=== PATIENT | female | born 1970 | race Caucasian/White ===

== ENCOUNTER 2019-03-25 12:15 | Inpatient (IN) | payer OTHER ==
[~2019-03-25] VITALS: Ht 165.1 cm; Wt 84.3 kg
[~2019-03-25 12:15] MED LIST: ACET325 PO; ALBU90OI6 INH; ALPR.5 PO; AZIT250 PO; BUPRENORPHIN-N1 EACH SL; CEFD300 PO; CEPH500 PO; CIPR500 PO; CLON.1 PO; CLON1 PO; CLON2 PO; CONEST.625 PO; CONEST.9 PO; CONEST1.25 PO; CRUTCH3 USE; CRUTCH4 USE; CYCL10 PO; DELTASONE20 MG PO; DEXGUASY PO; DIAZ5 PO; DIGO.25 PO; DILT120 PO; DILT60 PO; DOXEPIN; DOXY100 PO; ERGO50000 PO; FLUT1DIS5 INH; GABA300 PO; HYDACE10B PO; HYDACE5 PO; IBUP400 PO; IBUP600 PO; IBUP800 PO; KETO10 PO; LEVFLO500 PO; LORA1 PO; METH10; METH10 PO; MONT10T PO; Mobic15 MG PO; NAPR220; NAPR500 PO; NAPR550 PO; NICO21TP TOP; OXYACE5T PO; OXYC5 PO; PARO20 PO; PENVK500 PO; PROACE100 PO; PROM25 PO; Pyridium200 MG PO; QUET100 PO; RXCYCL10 PO; RXHYDACE PO; RXPROACE PO; RXTRAM50 PO; SERT25; SERT50; SULTRIDS PO; TRAM50 PO; TRIHYD PO; Vistaril25 MG PO; WARF2; WARF5 PO; ZOLP5; [UNRECOGNIZED DRUG - REMARK]
[2019-03-25] MEDS ORDERED: ZESTORETIC 20-121 EA PO (13:04)
[2019-03-25] MEDS ORDERED: Toprol Xl50 MG PO (13:05)
[2019-03-25 13:14] LABS: Source, Urine Clean Catch
[2019-03-25 13:34] LABS: BASOPHILS PERCENT AUTO 1 % (0-2); EOSINOPHILS ABSOLUTE AUTO 0.02 K/mm3 (0.00-0.68); EOSINOPHILS PERCENT AUTO 0 % (0-6); Hematocrit 37.7 % (33.0-51.0); Hemoglobin 12.6 g/dL (11.5-16.0); IMMATURE GRAN ABSOLUTE AUTO 0.23 K/mm3 (0.00-0.10); IMMATURE GRAN PERCENT AUTO 1 % (0-1); LYMPHOCYTES ABSOLUTE AUTO 1.64 K/mm3 (0.84-5.20); LYMPHOCYTES PERCENT AUTO 8 % (21-46); MONOCYTES ABSOLUTE AUTO 1.62 K/mm3 (0.16-1.47); MONOCYTES PERCENT AUTO 8 % (4-13); Mean Corpuscular HGB 28.5 pg (26.0-34.0); Mean Corpuscular HGB Conc 33.4 g/dL (31.5-36.5); Mean Corpuscular Volume 85 fL (80-100); NEUTROPHILS ABSOLUTE AUTO 17.63 K/mm3 (1.96-9.15); NEUTROPHILS PERCENT AUTO 83 % (41-73); RDW Coefficient Variation 12.2 % (11.7-14.2); RDW Standard Deviation 38.3 fL (35.1-46.3); Red Blood Cell Count 4.42 M/mm3 (3.80-5.20); White Blood Cell Count 21.24 K/mm3 (4.00-11.30)
[2019-03-25 13:34] LABS: Appearance, Urine Cloudy (Clear); Bilirubin, Urine Neg (Neg); Blood, Urine 3+ (Neg); Color, Urine Yellow (P-Yellow); Glucose Qualitative, Urine 4+ (Neg); Ketones, Urine 1+ (Neg); Leukocyte Esterase, Urine 2+ (Neg); Nitrite, Urine Neg (Neg); Protein, Urine 1+ (Neg); Urobilinogen, Urine NORM (Normal)
[2019-03-25 13:45] LABS: Mean Platelet Volume 12.1 fL (9.1-12.4); Platelet Count 308 K/mm3 (150-400)
[2019-03-25 13:58] LABS: Bacteria Many /hpf; Red Blood Cells, Urine TNTC /hpf (0-2); Squamous Epithelial Cells Few /hpf (Few); White Blood Cells, Urine TNTC /hpf (0-5)
[2019-03-25 14:24] LABS: Alanine Aminotransfer (ALT/SGP 16 U/L (12-78); Albumin, Blood 2.3 g/dL (3.4-5.0); Albumin/Globulin Ratio 0.5 (0.8-1.8); Alk Phos 140 U/L (50-136); Anion Gap 12 mmol/L (6-16); Aspartate Aminotrans (AST/SGOT 6 U/L (12-37); Bilirubin, Total 0.5 mg/dL (0.1-1.0); Blood Urea Nitrogen 19 mg/dL (8-24); Bun/Creatinine Ratio 21.2 (12.0-20.0); CO2, Blood 26 mmol/L (21-32); Calcium, Blood 9.3 mg/dL (8.5-10.1); Chloride, Blood 88 mmol/L (98-108); Globulin, Blood 4.7 g/dL (2.2-4.0); Glomerular Filtration Rate >60 (60-); Glucose, Blood 707 mg/dL (70-99); Potassium, Blood 3.3 mmol/L (3.5-5.5); Sodium, Blood 126 mmol/L (136-145)
[2019-03-25] MEDS ORDERED: AMPDEX10CR PO (14:50)
[2019-03-25 16:47] LABS: BASOPHILS ABSOLUTE AUTO 0.06 K/mm3 (0.00-0.23); BASOPHILS PERCENT AUTO 0 % (0-2); EOSINOPHILS ABSOLUTE AUTO 0.04 K/mm3 (0.00-0.68); EOSINOPHILS PERCENT AUTO 0 % (0-6); Hematocrit 33.8 % (33.0-51.0); Hemoglobin 11.3 g/dL (11.5-16.0); IMMATURE GRAN ABSOLUTE AUTO 0.18 K/mm3 (0.00-0.10); IMMATURE GRAN PERCENT AUTO 1 % (0-1); LYMPHOCYTES ABSOLUTE AUTO 1.66 K/mm3 (0.84-5.20); LYMPHOCYTES PERCENT AUTO 9 % (21-46); MONOCYTES ABSOLUTE AUTO 1.32 K/mm3 (0.16-1.47); MONOCYTES PERCENT AUTO 7 % (4-13); Mean Corpuscular HGB 28.5 pg (26.0-34.0); Mean Corpuscular HGB Conc 33.4 g/dL (31.5-36.5); Mean Corpuscular Volume 85 fL (80-100); NEUTROPHILS ABSOLUTE AUTO 14.68 K/mm3 (1.96-9.15); NEUTROPHILS PERCENT AUTO 82 % (41-73); Platelet Count 311 K/mm3 (150-400); RDW Coefficient Variation 12.3 % (11.7-14.2); RDW Standard Deviation 38.4 fL (35.1-46.3); Red Blood Cell Count 3.96 M/mm3 (3.80-5.20); White Blood Cell Count 17.94 K/mm3 (4.00-11.30)
[2019-03-25 17:02] LABS: International Normalized Ratio 1.02; Prothrombin Time Results 10.8 Sec (9.7-11.5)
[2019-03-25 17:08] LABS: Alanine Aminotransfer (ALT/SGP 13 U/L (12-78); Albumin, Blood 2.1 g/dL (3.4-5.0); Albumin/Globulin Ratio 0.5 (0.8-1.8); Alk Phos 121 U/L (50-136); Anion Gap 8 mmol/L (6-16); Aspartate Aminotrans (AST/SGOT 4 U/L (12-37); Bilirubin, Total 0.3 mg/dL (0.1-1.0); Blood Urea Nitrogen 19 mg/dL (8-24); Bun/Creatinine Ratio 23.3 (12.0-20.0); CO2, Blood 27 mmol/L (21-32); Calcium, Blood 8.3 mg/dL (8.5-10.1); Chloride, Blood 93 mmol/L (98-108); Creatinine, Blood 0.81 mg/dL (0.40-1.00); Globulin, Blood 4.3 g/dL (2.2-4.0); Glomerular Filtration Rate >60 (60-); Glucose, Blood 583 mg/dL (70-99); Potassium, Blood 3.1 mmol/L (3.5-5.5); Sodium, Blood 128 mmol/L (136-145); Total Protein, Blood 6.4 g/dL (6.4-8.2)
[2019-03-25 17:40] LABS: Glucose, Blood 590 mg/dL (70-99)
--- NOTE | 2019-03-25 19:18 | NUR ---
PM NOTE. ASSUMED CARE OF PT APROX 1900, PT IS A&Ox4 AND WAS ADMITTED DUE TO PNA/SEPSIS AND WAS FOUND TO HAVE HYPERGLYCEMIA. PT'S CURRENT CBG IS 488. TELE INTACT, NSR IN THE 90"S PER CUSTOMER RESOLUTION SPECIALIST, PT'S BP 98/67. NO EDEMA NOTED ON ASSESSMENT. L/S CLEAR IN THE UPPER LOBES COARSE T/O THE MID AND LOWER LOBES AND DIM IN THE BASES. PT IS ON RA AT 95%. BT PRESENT AND HYPERACTIVE, ABD IS SOFT AND NONTENDER TO PALP. PT IS VERY ANXIOUS AND TEARFUL AT TIMES, PT IS VERY SENSITIVE TO ANY TYPE OF PAIN AND STATES SHE IS IN 8/10 CONSTANTLY. PT HAS HX OF IV HEROIN/OPIATE ABUSE. CALL LIGHT IN REACH, BED IS LOCKED AND LOW WILL CONTINUE TO MONITOR.
[2019-03-25 21:00] LABS: Glucose, Blood 488 mg/dL (70-99)
[2019-03-26 04:19] LABS: BASOPHILS ABSOLUTE AUTO 0.05 K/mm3 (0.00-0.23); BASOPHILS PERCENT AUTO 0 % (0-2); EOSINOPHILS ABSOLUTE AUTO 0.05 K/mm3 (0.00-0.68); EOSINOPHILS PERCENT AUTO 0 % (0-6); Hematocrit 32.9 % (33.0-51.0); Hemoglobin 10.9 g/dL (11.5-16.0); IMMATURE GRAN ABSOLUTE AUTO 0.27 K/mm3 (0.00-0.10); IMMATURE GRAN PERCENT AUTO 1 % (0-1); LYMPHOCYTES PERCENT AUTO 9 % (21-46); MONOCYTES ABSOLUTE AUTO 1.41 K/mm3 (0.16-1.47); MONOCYTES PERCENT AUTO 7 % (4-13); Mean Corpuscular HGB 28.7 pg (26.0-34.0); Mean Corpuscular HGB Conc 33.1 g/dL (31.5-36.5); Mean Corpuscular Volume 87 fL (80-100); Mean Platelet Volume 11.8 fL (9.1-12.4); NEUTROPHILS ABSOLUTE AUTO 15.93 K/mm3 (1.96-9.15); NEUTROPHILS PERCENT AUTO 82 % (41-73); Platelet Count 319 K/mm3 (150-400); RDW Coefficient Variation 12.5 % (11.7-14.2); RDW Standard Deviation 40.1 fL (35.1-46.3); White Blood Cell Count 19.41 K/mm3 (4.00-11.30)
[2019-03-26 04:38] LABS: Alanine Aminotransfer (ALT/SGP 14 U/L (12-78); Albumin, Blood 1.9 g/dL (3.4-5.0); Albumin/Globulin Ratio 0.4 (0.8-1.8); Alk Phos 110 U/L (50-136); Anion Gap 7 mmol/L (6-16); Aspartate Aminotrans (AST/SGOT 10 U/L (12-37); Bilirubin, Total 0.5 mg/dL (0.1-1.0); Blood Urea Nitrogen 19 mg/dL (8-24); Bun/Creatinine Ratio 24.6 (12.0-20.0); CO2, Blood 26 mmol/L (21-32); Calcium, Blood 8.4 mg/dL (8.5-10.1); Chloride, Blood 99 mmol/L (98-108); Creatinine, Blood 0.77 mg/dL (0.40-1.00); Globulin, Blood 4.6 g/dL (2.2-4.0); Glomerular Filtration Rate >60 (60-); Glucose, Blood 351 mg/dL (70-99); Potassium, Blood 3.8 mmol/L (3.5-5.5); Sodium, Blood 132 mmol/L (136-145); Total Protein, Blood 6.5 g/dL (6.4-8.2)
[2019-03-26] MEDS ORDERED: GABA400 PO (05:02)
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
--- NOTE | 2019-03-26 18:04 | NUR ---
SHIFT SUMMARY PT ALERT AND ORIENTED. VS HAVE BEEN STABLE. 02 SATS >90% ON RA. PT HAS BEEN ANXIOUS AND TEARFUL THROUGHOUT SHIFT. CBG HAVE IMPROVED. EDUCATION PROVIDED ABOUT DIABETES. PT ABLE TO TRANSFER TO BATHROOM NEEDED WITH SBA. WILL CONTINUE TO MONITOR AND REPORT TO ONCOMING RN. CALL LIGHT IN REACH.
--- NOTE | 2019-03-26 19:39 | NUR ---
PM NOTE. ASSUMED CARE OF PT APROX 1900. PT IS A&Ox4, ANXIOUS, MOANING STATING SHE IS "IN THE WORST PAIN OF MY LIFE." PT WAS ADMITTED FOR SEPSIS, PNA AND UTI. PT STATED THAT HER FIANCE WAS GOING TO COME VISIT HER AND ASKED IF HE COULD TAKE HER OUTSIDE. THIS RN EDUCATED THE PT ON WHAT PCU STATUS MEANS AND THAT THE UNIT POLICY IS NOT TO ALLOW PTS TO LEAVE THE UNIT TO GO SMOKE. PT TEARFULLY STATED HER UNDERSTANDING. PT HAS AN 18 G IV IN HER RIGHT EJ, PT STATED THAT THE IV ANTIBIOTICS THAT WERE RUNNING THROUGH THIS IV WERE CAUSING HER SEVERE PAIN, THIS IV WAS SWITCHED TO THE 20 G IN HER LEFT HAND. PT WAS PROVIDED WITH EDUCATION ON DIABETES HOME CARE, DIET, BLOOD SUGAR CHECKS/CBGS AT HOME. PT DENIED ANY QUESTIONS, COMMENTS OR CONCERNS. PT WAS ENCOURAGED TO USE AN I.S. TO HELP WITH HER BREATHING, RT IN THE ROOM TO PROVIDE EDUCATION/INSTRUCTION. PT WAS ALSO ENCOURAGED TO GET UP AND SIT IN A CHAIR FOR MEALS TO PREVENT DECONDITIONING. TELE INTACT, SNR IN THE 90'S PER PEPPER CUTTER. PT'S BP 113/72. PT HAS TRACE EDEMA TO HER BLE. L/S CLEAR IN THE UPPER LOBES, COARSE IN THE OTHER LOBES, LEFT LOWER LOBE WAS NOTED TO BE DIM W/EXP WHEEZES. PT IS ON RA WITH O2 AT 90%. RR 18 EVEN AND UNLABORED. PT STATES SEVERE PAIN WITH COUGHING OR DEEP BREATHS. BT PRESENT AND HYPOACTIVE, ABD IS SOFT AND NONTENDER TO PALP. CALL LIGHT IN REACH, BED IS LOCKED AND LOW WILL CONTINUE TO MONITOR.
--- NOTE | 2019-03-27 05:18 | NUR ---
SHIFT SUMMARY. NO ACUTE CHANGES NOTED THIS SHIFT. PT HAS SLEPT WELL MOST OF THIS SHIFT. PT'S FIANCE WAS AT THE BED SIDE FOR APROX 2 HOURS. PT'S VS HAVE BEEN STABLE. PT C/O OF PAIN AND ANXIETY AND WAS MEDICATED PER EMAR. PT REQUESTED O2 SUPPLEMENTATION APROX 0300, PT'S O2 SATS WERE 88-91% ON RA. SPOKE WITH RT AND PLACED 2L NC ON THE PT, PT'S O2 SATS INCREASED TO 92-93% PT STATES SHE "FEELS A LITTLE BETTER WITH OXYGEN ON." PT HAS BEEN EDUCUATED AND ENCOURAGED TO USE THE INCENTIVE SPIROMETER AT THE BEDSIDE. PT HAS BEEN WALKING INTO THE BATHROOM TO VOID, PT HAS NOT HAD A BM THIS SHIFT, PT'S LAST STATED BM WAS ON 03/24. CALL LIGHT IN REACH, BED IS LOCKED AND LOW WILL CONTINUE TO MONITOR UNTIL REPORT IS GIVEN TO ONCOMING RN.
[2019-03-27 12:04] LABS: BASOPHILS ABSOLUTE AUTO 0.08 K/mm3 (0.00-0.23); BASOPHILS PERCENT AUTO 1 % (0-2); EOSINOPHILS ABSOLUTE AUTO 0.05 K/mm3 (0.00-0.68); EOSINOPHILS PERCENT AUTO 0 % (0-6); Hematocrit 33.8 % (33.0-51.0); Hemoglobin 11.2 g/dL (11.5-16.0); IMMATURE GRAN ABSOLUTE AUTO 0.68 K/mm3 (0.00-0.10); IMMATURE GRAN PERCENT AUTO 4 % (0-1); LYMPHOCYTES ABSOLUTE AUTO 2.09 K/mm3 (0.84-5.20); LYMPHOCYTES PERCENT AUTO 12 % (21-46); MONOCYTES ABSOLUTE AUTO 1.14 K/mm3 (0.16-1.47); MONOCYTES PERCENT AUTO 7 % (4-13); Mean Corpuscular HGB 28.9 pg (26.0-34.0); Mean Corpuscular HGB Conc 33.1 g/dL (31.5-36.5); Mean Corpuscular Volume 87 fL (80-100); Mean Platelet Volume 11.3 fL (9.1-12.4); NEUTROPHILS ABSOLUTE AUTO 12.95 K/mm3 (1.96-9.15); NEUTROPHILS PERCENT AUTO 76 % (41-73); Platelet Count 341 K/mm3 (150-400); RDW Coefficient Variation 13.1 % (11.7-14.2); RDW Standard Deviation 41.2 fL (35.1-46.3); Red Blood Cell Count 3.87 M/mm3 (3.80-5.20); White Blood Cell Count 16.99 K/mm3 (4.00-11.30)
[2019-03-27 12:21] LABS: Albumin, Blood 1.9 g/dL (3.4-5.0); Anion Gap 7 mmol/L (6-16); Blood Urea Nitrogen 15 mg/dL (8-24); Bun/Creatinine Ratio 24.4 (12.0-20.0); CO2, Blood 24 mmol/L (21-32); Calcium, Blood 8.7 mg/dL (8.5-10.1); Chloride, Blood 100 mmol/L (98-108); Creatinine, Blood 0.62 mg/dL (0.40-1.00); Glomerular Filtration Rate >60 (60-); Glucose, Blood 270 mg/dL (70-99); Potassium, Blood 3.7 mmol/L (3.5-5.5); Sodium, Blood 131 mmol/L (136-145)
--- NOTE | 2019-03-27 18:03 | NUR ---
SHIFT SUMMARY PT ALERT AND ORIENTED. VS STABLE. 02 SATS HAVE REMAINED ABOVE 90% ON RA. PT PERSISTENT ABOUT GOING OUTSIDE TO SMOKE. DR. JAUREGUI ALLOWED PT TO GO OUTSIDE. PT EDUCATED ABOUT INSULIN ADMINISTRATION AND CHECKING BLOOD SUGAR. PROCESS IMPROVEMENT ENGINEER IN TO EDUCATE ABOUT DIABETIC DIET. PT COMPLAINED ABOUT PAIN IN LEFT SIDE THAT WAS RELEIVED WITH MEDICATION ADMINISTRATION. WILL CONTINUE TO MONITOR AND REPORT TO ONCOMING RN. CALL LIGHT IN REACH.
[2019-03-28 04:06] LABS: BASOPHILS ABSOLUTE AUTO 0.09 K/mm3 (0.00-0.23); BASOPHILS PERCENT AUTO 1 % (0-2); EOSINOPHILS PERCENT AUTO 1 % (0-6); Hemoglobin 10.1 g/dL (11.5-16.0); IMMATURE GRAN ABSOLUTE AUTO 0.76 K/mm3 (0.00-0.10); IMMATURE GRAN PERCENT AUTO 6 % (0-1); LYMPHOCYTES ABSOLUTE AUTO 1.95 K/mm3 (0.84-5.20); LYMPHOCYTES PERCENT AUTO 14 % (21-46); MONOCYTES ABSOLUTE AUTO 1.17 K/mm3 (0.16-1.47); MONOCYTES PERCENT AUTO 9 % (4-13); Mean Corpuscular HGB 28.2 pg (26.0-34.0); Mean Corpuscular HGB Conc 32.6 g/dL (31.5-36.5); Mean Corpuscular Volume 87 fL (80-100); Mean Platelet Volume 11.6 fL (9.1-12.4); NEUTROPHILS PERCENT AUTO 70 % (41-73); Platelet Count 335 K/mm3 (150-400); RDW Standard Deviation 41.1 fL (35.1-46.3); Red Blood Cell Count 3.58 M/mm3 (3.80-5.20); White Blood Cell Count 13.77 K/mm3 (4.00-11.30)
[2019-03-28 04:24] LABS: Anion Gap 7 mmol/L (6-16); Blood Urea Nitrogen 13 mg/dL (8-24); Bun/Creatinine Ratio 22.8 (12.0-20.0); CO2, Blood 25 mmol/L (21-32); Calcium, Blood 8.8 mg/dL (8.5-10.1); Chloride, Blood 102 mmol/L (98-108); Creatinine, Blood 0.57 mg/dL (0.40-1.00); Glomerular Filtration Rate >60 (60-); Glucose, Blood 283 mg/dL (70-99); Potassium, Blood 3.8 mmol/L (3.5-5.5); Sodium, Blood 134 mmol/L (136-145)
[2019-03-28 04:25] LABS: BAND PERCENT MAN 1 % (0-8); BASOPHILS PERCENT MAN 0 % (0-2); EOSINOPHILS ABSOLUTE MAN 0.13 K/mm3 (0.00-0.68); EOSINOPHILS PERCENT MAN 1 % (0-6); LYMPHOCYTES ABSOLUTE MAN 2.06 K/mm3 (0.84-5.20); LYMPHOCYTES PERCENT MAN 15 % (21-46); MONOCYTES ABSOLUTE MAN 0.41 K/mm3 (0.16-1.47); MONOCYTES PERCENT MAN 3 % (4-13); MYELOCYTE ABSOLUTE MAN 0.27 K/mm3 (0.00-0.00); MYELOCYTE PERCENT MAN 2 % (0-0); NEUTROPHILS ABSOLUTE MAN 10.87 K/mm3 (1.96-9.15); SEG NEUTROPHILS PERCENT MAN 78 % (41-73); TOTAL CELLS COUNTED 100
--- NOTE | 2019-03-28 06:23 | NUR ---
END OF SHIFT SUMMARY ASSUMED CARE OF PT @1900. PT CRYING UPON ENTERING ROOM, STATES HER IV'S ARE "KILLING HER". PT NOTED TO BE VERY SENSITIVE AND AT TIMES EMOTIALLY LABILE. PT BEGINS TO BECOME ANXIOUS, IV ATIVAN GIVEN. PT STATES ANXIETY AND PAIN DECREASE. PT HAS BEEN OUT TO SMOKE 2X'S THIS SHIFT. THIS IS DR FOX PER NOTE. PT'S EJ DRESSING WAS REINFORCED THIS SHIFT. PT APPEARS TO HAVE RESTED FOR MAJORITY OF SHIFT. VSS. NO ACUTE CHANGES. WILL CONTINUE TO MONITOR PT UNTIL SHIFT CHANGE.
--- NOTE | 2019-03-28 11:55 | NUR ---
RT RECENTLY TO SEE PT.
--- NOTE | 2019-03-28 12:15 | NUR ---
DR MCKEE HERE RECENTLY TO SEE PT. [facility] RN PRIOR AUTHORIZATION TO GIVE EDUCATION PAPERWORK. RN PRIOR AUTHORIZATION REPORTED TALKING TO PT FOR AN HOUR YESTERDAY. RN PRIOR AUTHORIZATION RECENTLY GAVE PICTURE BOOKLET TO ADD TO OTHER DIETARY PAPERWORK.
--- NOTE | 2019-03-28 13:31 | NUR ---
PT DRINKING WATER MUCH BETTER, ALMOST DRANK FULL BOTTLE OF WATER AND SOME OF ENSURE. FAMILY/FRIENDS IN ROOM.
[2019-03-28] MEDS ORDERED: BENZ100A PO (15:59)
[2019-03-28] MEDS ORDERED: Colace100 MG PO (16:00)
[2019-03-28] MEDS ORDERED: INSULANPEN SC (16:02)
[2019-03-28] MEDS ORDERED: Humalog100 UNIT/1 (16:08)
[2019-03-28] MEDS ORDERED: LEVFLO500 PO (16:10)
[2019-03-28] MEDS ORDERED: Culturelle1 CAP PO (16:10)
[2019-03-28] MEDS ORDERED: DULERA 100 MCG/13 GM INH (16:12)
[2019-03-28] MEDS ORDERED: ALBU90OI6 INH (16:13)
--- NOTE | 2019-03-28 16:48 | NUR ---
DISCHARGE: PT REPORTS UNDERSTANDING OF DISCHARGE INSTRUCTIONS. PT GIVEN ALL BELONGINGS. PT GIVEN SCRIPT, OTHER MEDICATIONS FAXED TO PHARMACY OF PT'S CHOICE. PT SENT HOME WITH [address] MULT PEOPLE ASSIST WITH DISCHARGE. PT SENT WITH DISCHARGE INSTRUCTIONS REGARDING MEDIUM SLIDING SCALE. PT SENT WITH MULT INSTRUCTIONS REGARDING DIABETES. NO IV IN PLACE. FAMILY/FRIEND PICKING PT UP.
== END 2019-03-28 17:01 | disposition home health service (06) | DRG 871 ==
LOC: ER 12:15 → PCU 15:52
PROVIDERS: Emergency Medicine; Internal Medicine; ADMIT Internal Medicine
DX: A41.51 Sepsis due to Escherichia coli [E. coli] (principal); J18.1 Lobar pneumonia, unspecified organism; N39.0 Urinary tract infection, site not specified; E87.1 Hypo-osmolality and hyponatremia; I10 Essential (primary) hypertension; F90.9 Attention-deficit hyperactivity disorder, unspecified type; F43.10 Post-traumatic stress disorder, unspecified; F41.8 Other specified anxiety disorders; I48.0 Paroxysmal atrial fibrillation; G43.909 Migraine, unspecified, not intractable, without status migrainosus; F17.210 Nicotine dependence, cigarettes, uncomplicated; E11.65 Type 2 diabetes mellitus with hyperglycemia; E87.6 Hypokalemia; Z99.81 Dependence on supplemental oxygen; Z79.4 Long term (current) use of insulin
CPT/HCPCS: 36415; 71045; 80048; 80053; 80069; 81001; 82947; 83036; 83605; 83735; 85025; 85610; 85730; 87077; 87086; 87186; 93005; 93010; 94640; 94760; 94761; 96365; 96366; 96367; 96375; 99285-25; C1751; J0456; J0690; J0696; J1650; J1815; J1885; J1956; J2060; J3480; J7030; J7050

== ENCOUNTER 2024-02-21 13:34 | Inpatient (IN) | payer OTHER ==
[~2024-02-21] VITALS: Ht 154.9 cm; Wt 65.2 kg
[~2024-02-21 13:34] MED LIST changes: +AMPDEX10CR PO; +BENZ100A PO; +Colace100 MG PO; +Culturelle1 CAP PO; +DULERA 100 MCG/13 GM INH; +GABA400 PO; +Humalog100 UNIT/1; +INSULANPEN SC; +Toprol Xl50 MG PO; +ZESTORETIC 20-121 EA PO
[2024-02-21] MEDS ORDERED: NS 1,000 ML IV SCH (14:25)
[2024-02-21] MEDS ORDERED: Metoprolol Tartrate 1 MG/ML 5 ML VIAL IV PRN ×2 (14:25→20:25)
[2024-02-21 14:28] LABS: Albumin, Blood 3.5 g/dL (3.4-5.0); Albumin/Globulin Ratio 0.9 (0.8-1.8); Bilirubin, Total 0.6 mg/dL (0.1-1.0); Calcium, Blood 9.6 mg/dL (8.5-10.1); Creatinine, Blood 0.93 mg/dL (0.40-1.00); Globulin, Blood 4.1 g/dL (2.2-4.0); Potassium, Blood 3.9 mmol/L (3.5-5.5); Total Protein, Blood 7.6 g/dL (6.4-8.2)
[2024-02-21 14:35] LABS: BASOPHILS ABSOLUTE AUTO 0.07 K/mm3 (0.00-0.23); BASOPHILS PERCENT AUTO 1 % (0-2); EOSINOPHILS ABSOLUTE AUTO 0.13 K/mm3 (0.00-0.68); EOSINOPHILS PERCENT AUTO 1 % (0-6); IMMATURE GRAN ABSOLUTE AUTO 0.06 K/mm3 (0.00-0.10); IMMATURE GRAN PERCENT AUTO 1 % (0-1); LYMPHOCYTES ABSOLUTE AUTO 2.52 K/mm3 (0.84-5.20); LYMPHOCYTES PERCENT AUTO 23 % (21-46); MONOCYTES ABSOLUTE AUTO 0.79 K/mm3 (0.16-1.47); MONOCYTES PERCENT AUTO 7 % (4-13); Mean Corpuscular HGB 27.5 pg (26.0-34.0); Mean Corpuscular HGB Conc 32.4 g/dL (31.5-36.5); Mean Corpuscular Volume 85 fL (80-100); NEUTROPHILS ABSOLUTE AUTO 7.58 K/mm3 (1.96-9.15); NEUTROPHILS PERCENT AUTO 68 % (41-73); NRBC ABSOLUTE 0.03 K/mm3 (0.00-0.02); NRBC Auto 0.3 /100 WBC (0.0-0.2); RDW Coefficient Variation 13.4 % (11.7-14.2); RDW Standard Deviation 41.1 fL (35.1-46.3); Red Blood Cell Count 4.37 M/mm3 (3.80-5.20); White Blood Cell Count 11.15 K/mm3 (4.00-11.30)
[2024-02-21 14:54] LABS: Mean Platelet Volume 13.6 fL (9.1-12.4); Platelet Count 214 K/mm3 (150-400)
[2024-02-21 15:57] LABS: Influenza A, PCR NEGATIVE (NEGATIVE); Influenza B, PCR NEGATIVE (NEGATIVE); Resp Syncytial Virus, PCR NEGATIVE (NEGATIVE); SARS-Cov-2 (COVID-19) PCR, MMC NEGATIVE (NEGATIVE)
[2024-02-21] MEDS ORDERED: dilTIAZem HCL 125 MG in Dextrose 5% 100 ML IV SCH (16:40)
[2024-02-21] MEDS ORDERED: Mag Sulfate 1 GM/D5% 100ML 100 ML IV STA (17:50)
[2024-02-21] MEDS ORDERED: Furosemide 10 MG/ML 4ML Vial IV SCH (18:00)
[2024-02-21] MEDS ORDERED: Metoprolol Tartrate 25 MG Tab PO SCH (18:00)
[2024-02-21 20:38] LABS: U Amphetamine Screen DETECTED; U Barbituate Screen Not Detected; U Benzodiazapine Screen Not Detected; U Buprenorphine Screen Not Detected; U Cannabinoids Screen DETECTED; U Cocaine Screen Not Detected; U Methadone Screen Not Detected; U Methamphetamine Screen DETECTED; U Opiates Screen Not Detected; U Oxycodone Screen Not Detected; U Phencyclidine Screen Not Detected
--- NOTE | 2024-02-21 21:43 | NUR ---
ARRIVAL TO PCU: PT ARRIVED TO PCU 19 [facility]IA [facility] AT 2019. REPORT FROM ALANA RN, THIS RN ASSUMED CARE OF PT. PT ABLE TO STAND & TRANSFER TO BED W/ SBA. PT ALERT ON ARRIVAL, ORIENTED X4; PT DOES FALL ASLEEP MID-CONVERSATION BUT WAKES EASILY TO VERBAL STIMULI. PERRLA. STRENGTH EQUAL BILATERALLY. HR 80-100'S, AFIB ON TELE. DILT GTT REMAINS OFF. SBP 100'S, MAP >65. DENIES CHEST PAIN/PRESSURE. SPO2 >90% ON 2L VIA NC. SEE ASSESSMENT FOR FURTHER DETAILS. PT ORIENTED TO ROOM/UNIT/CALL LIGHT. EDUCATED ON FALL PREVENTION. FIRE SAFETY/IGNITION RISK ASSESSED; PT IS EVERY DAY SMOKER BUT REFUSES NICOTINE PATCH. PT REPORTS HER VINYL INSTALLER WAS LOCKED UP W/ SECURITY WHILE IN ED & NO CIGARETTES ARE PRESENT IN ROOM. NO FURTHER NEEDS AT THIS TIME. CALL LIGHT IN REACH, BED ALARM ON FOR PT SAFETY.
[2024-02-21 23:50] VITALS: BP 130/102
[2024-02-22] VITALS (8 sets, daily range): BP systolic 120–147; BP diastolic 80–102
--- NOTE | 2024-02-22 05:02 | NUR ---
END OF SHIFT NOTE: NO ACUTE EVENTS FOLLOWING ARRIVAL TO PCU. PT RESTED IN BED FOR MAJORITY OF SHIFT. HR 80-100'S, AFIB ON TELE. DILT GTT REMAINS OFF. SBP 100-140'S, DENIES CHEST PAIN/PRESSURE. SPO2 >90% ON 2L NC. REPOSITIONING SELF INDEPENDENTLY IN BED. UP TO BATHROOM W/ SBA. NO OTHER NEEDS AT THIS TIME. CALL LIGHT IN REACH, BED ALARM ON FOR PT SAFETY.
[2024-02-22] MEDS ORDERED: Insulin Human Lispro 100 Units/ML 3ML Syringe SC SCH ×2 (07:30→17:30)
[2024-02-22] MEDS ORDERED: Rivaroxaban 10 MG Tab PO SCH (09:00)
[2024-02-22] MEDS ORDERED: Methadone HCL 10 MG TAB PO ONE (10:00)
[2024-02-22] MEDS ORDERED: Methadone HCL 5 MG TAB PO PRN (10:05)
[2024-02-22 12:12] LABS: BASOPHILS ABSOLUTE AUTO 0.07 K/mm3 (0.00-0.23); BASOPHILS PERCENT AUTO 1 % (0-2); EOSINOPHILS ABSOLUTE AUTO 0.15 K/mm3 (0.00-0.68); EOSINOPHILS PERCENT AUTO 1 % (0-6); Hematocrit 37.4 % (33.0-51.0); Hemoglobin 12.2 g/dL (11.5-16.0); IMMATURE GRAN ABSOLUTE AUTO 0.05 K/mm3 (0.00-0.10); IMMATURE GRAN PERCENT AUTO 1 % (0-1); LYMPHOCYTES ABSOLUTE AUTO 2.33 K/mm3 (0.84-5.20); LYMPHOCYTES PERCENT AUTO 22 % (21-46); MONOCYTES ABSOLUTE AUTO 0.68 K/mm3 (0.16-1.47); MONOCYTES PERCENT AUTO 6 % (4-13); Mean Corpuscular HGB 27.7 pg (26.0-34.0); Mean Corpuscular HGB Conc 32.6 g/dL (31.5-36.5); Mean Corpuscular Volume 85 fL (80-100); NEUTROPHILS ABSOLUTE AUTO 7.52 K/mm3 (1.96-9.15); NEUTROPHILS PERCENT AUTO 70 % (41-73); Platelet Count 254 K/mm3 (150-400); RDW Coefficient Variation 13.9 % (11.7-14.2); RDW Standard Deviation 42.1 fL (35.1-46.3); Red Blood Cell Count 4.41 M/mm3 (3.80-5.20)
[2024-02-22 12:21] LABS: Albumin, Blood 3.3 g/dL (3.4-5.0); Albumin/Globulin Ratio 0.8 (0.8-1.8); Bilirubin, Total 0.8 mg/dL (0.1-1.0); Bun/Creatinine Ratio 24.6 (12.0-20.0); Calcium, Blood 9.4 mg/dL (8.5-10.1); Creatinine, Blood 0.85 mg/dL (0.40-1.00); Globulin, Blood 4.1 g/dL (2.2-4.0); Potassium, Blood 3.3 mmol/L (3.5-5.5); Total Protein, Blood 7.4 g/dL (6.4-8.2)
[2024-02-22 12:29] LABS: Mean Platelet Volume 13.4 fL (9.1-12.4)
--- NOTE | 2024-02-22 12:37 | NUR ---
ASSUMPTION OF CARE: PATIENT IS ALERT AND ORIENTED X 4, DID WAKE UP GROGGY AND CONFUSED CLEARED VERY QUICKLY. HAVE INTOTAL GAVE 1 IV METOP PUSH, THEY WILL BE INCREASING LOPRESSOR. STARTED ON METHADONE AT 10mg, WITH PRN DOSES OF 5mg. PATIENT HAS BEEN ENDORSING, OCCASSIONAL SOB. HONEYENLTY ON NC 2L FOR SUPPORT. PATIENT CLEAR TO BASES THAN MINOR CRACKLES, IMPROVING. CXR ENDORSED COPD. STARTED ON ANTICOAG THERAPY (XERALTO.). PATIENT HAS BEEN PLEASANT AND COOPERATIVE, NO ACUTE CONCERNS FROM THIS RN.
[2024-02-22] MEDS ORDERED: Metoprolol Tartrate 25 MG Tab PO ONE (16:45)
[2024-02-22] MEDS ORDERED: Naloxone HCl 0.4MG / ML 1ML Vial IV PRN (17:05)
[2024-02-22] MEDS ORDERED: Furosemide 10 MG/ML 4ML Vial IV SCH (18:00)
--- NOTE | 2024-02-22 19:33 | NUR ---
EOS: STEPHANIENET DID NOT TOLERATE REMOVAL OF OXYGEN FOR LONGER THAN AN HOUR AT A TIME, PATIENT OVERALL HAVING MORE INCREAESD HEARTRATE EVEN WITH METOPROLOL IV, RECIEVED A 1 X DOSE OF 25mg OF LOPRESSOR FROM HOSPITALIST. PATIENT DID RESPOND <120, MAINLY 110'S. PATIENT WITH VERY INCREASED ANXIETY TOWARDS END OF SHIFT. WANTING TO LEAVE AGAINST MEDICAL ADVICE, GINNING OPERATOR EDUCATED AND PATIENT WILL TO STAY TILL THE MORNING. STILL ON 2L VIA NCSPO2 >92%. PATIENT STARTED ON METHADONE, PATIENT OK TO HAVE STARTING DOSE 10 MG AND UP TO [address] MORE MG PRN PER [address]. [place] WHEN ASKED ABOUT THE ORDER CLARIFICATION AND INCREASED HEARTRATE. EDUCATED NIGHT RN. PATIENT HAD ECHO NO RESULTS NOTED BY THIS RN. NO OTHER ACUTE CONCERNS.
--- NOTE | 2024-02-22 20:00 | NUR ---
ASSUMPTION OF CARE: THIS RN ASSUMED CARE OF PT AT APPROX 1900. PT ALERT, ORIENTED X4. SITTING UP IN BED, REPORTS FEELING VERY ANXIOUS. PT VOICING DESIRE TO LEAVE BUT ABLE TO BE COMFORTED & ASSISTED W/ RELAXATION. VSS. SEE ASSESSMENT. CALL LIGHT IN REACH.
[2024-02-22] MEDS ORDERED: Metoprolol Tartrate 50 MG Tab PO SCH (21:00)
[2024-02-22] MEDS ORDERED: Insulin Glargine-Yfgn 100 Unit/mL 3 ML SYR SC SCH (21:00)
[2024-02-22] MEDS ORDERED: Gabapentin 300 MG Cap PO SCH (21:00)
[2024-02-23 03:59] VITALS: BP 120/94
[2024-02-23 04:46] LABS: BASOPHILS ABSOLUTE AUTO 0.06 K/mm3 (0.00-0.23); BASOPHILS PERCENT AUTO 1 % (0-2); EOSINOPHILS ABSOLUTE AUTO 0.14 K/mm3 (0.00-0.68); EOSINOPHILS PERCENT AUTO 2 % (0-6); Hematocrit 36.7 % (33.0-51.0); Hemoglobin 12.3 g/dL (11.5-16.0); IMMATURE GRAN ABSOLUTE AUTO 0.05 K/mm3 (0.00-0.10); IMMATURE GRAN PERCENT AUTO 1 % (0-1); LYMPHOCYTES ABSOLUTE AUTO 2.66 K/mm3 (0.84-5.20); LYMPHOCYTES PERCENT AUTO 28 % (21-46); MONOCYTES ABSOLUTE AUTO 0.61 K/mm3 (0.16-1.47); MONOCYTES PERCENT AUTO 6 % (4-13); Mean Corpuscular HGB 28.1 pg (26.0-34.0); Mean Corpuscular HGB Conc 33.5 g/dL (31.5-36.5); Mean Corpuscular Volume 84 fL (80-100); NEUTROPHILS ABSOLUTE AUTO 5.99 K/mm3 (1.96-9.15); NEUTROPHILS PERCENT AUTO 63 % (41-73); Platelet Count 247 K/mm3 (150-400); RDW Coefficient Variation 13.7 % (11.7-14.2); RDW Standard Deviation 40.7 fL (35.1-46.3); Red Blood Cell Count 4.38 M/mm3 (3.80-5.20); White Blood Cell Count 9.51 K/mm3 (4.00-11.30)
[2024-02-23 05:05] LABS: Bun/Creatinine Ratio 25.4 (12.0-20.0); Calcium, Blood 8.9 mg/dL (8.5-10.1); Creatinine, Blood 0.91 mg/dL (0.40-1.00); Potassium, Blood 2.9 mmol/L (3.5-5.5)
--- NOTE | 2024-02-23 05:26 | NUR ---
END OF SHIFT NOTE: NO ACUTE EVENTS OVERNIGHT. PT ABLE TO SLEEP FOR MAJORITY OF SHIFT. ORIENTED X4, ANXIOUS AT TIMES. HR 80-110'S AT REST, UP TO 130-140'S W/ ACTIVITY BUT DOES NOT SUSTAIN. SBP 120-130'S, MAP >65. SPO2 >90% ON 2L NC. 1 DOSE METHADONE ADMINISTERED OF TIME OF THIS NOTE. UP TO BSC FOR FREQUENT VOIDS, >1900ML OUTPUT OVERNIGHT. NO BM'S. INDEPENDENTLY REPOSITIONING SELF IN BED, IMPULSIVE AT TIMES; BED ALARM ON FOR PT SAFETY. PT CONTINUES TO EXPRESS DESIRE TO LEAVE, REPORTS "ANXIETY" FROM MISSING HER DOG & SIG OTHER. NO OTHER NEEDS AT THIS TIME. CALL LIGHT IN REACH.
--- NOTE | 2024-02-23 06:13 | NUR ---
PHYSICIAN CONTACT: AM POTASSIUM 2.9. CALL TO HOSPITALIST, ORDERS RECEIVED FOR 40 MEQ KCL PO NOW. SEE EMAR. PT REPORTS INCREASED CRAVINGS THIS AM, MEDICATED W/ METHADONE PER EMAR.
[2024-02-23] MEDS ORDERED: Potassium Chloride 20 MEQ TabCR PO ONE ×2 (06:15→15:00)
[2024-02-23] MEDS ORDERED: Potassium Chl 20MEQ/Water100ML 100 ML IV STA (06:22)
[2024-02-23 08:00] VITALS: BP 130/82
[2024-02-23] MEDS ORDERED: NS 250 ML IV PRN (08:00)
--- NOTE | 2024-02-23 08:13 | NUR ---
Pt is alert, oriented, and saying that she really wants to go home. Says that she just can't stand staying here much longer. Dr. Dhillon rounddave at this time. New orders received for increased metoprolol dose, from 50 to 75 mg bid. Will be administering IV potassium; pt did get 1 dose 40 Meq kcl po on noc shift. Pt's heart rate at this time is 127 bpm, afib.
--- NOTE | 2024-02-23 08:36 | NUR ---
here, rounding on the patient. She is agreeable to stay until this afternoon. Increased dose of lopressor given, po. Currently infusing IV potassium, diluted with NS, via right upper arm IV.
--- NOTE | 2024-02-23 08:56 | NUR ---
OOB to BSC independently. She is able to do this safely and independently. Managing with the IV lines without apparent difficulty.
[2024-02-23] MEDS ORDERED: Metoprolol Tartrate 50 MG Tab PO SCH (09:00)
[2024-02-23] MEDS ORDERED: Mag Sulfate 1 GM/D5% 100ML 100 ML IV STA (11:46)
[2024-02-23 12:24] VITALS: BP 135/90
[2024-02-23] MEDS ORDERED: INSULANPEN SC (12:41)
[2024-02-23] MEDS ORDERED: METO50 PO (12:41)
[2024-02-23] MEDS ORDERED: XARELTO20 MG PO (12:45)
[2024-02-23] MEDS ORDERED: NARCAN4 M1 (12:45)
[2024-02-23] MEDS ORDERED: SOAANZ20 M1 PO (12:46)
--- NOTE | 2024-02-23 12:51 | NUR ---
Pt is a littel anxious, near tears earlier, stating that she needs to get home to her who is depressed and not used to being without her. She also says that she needs to pay the rent, and has a lot of things at home to take care of. Kcl infusion completed at 1215; now infusing magnesium IVPB. Waiting now for lab to draw the Kcl level at 1300.
--- NOTE | 2024-02-23 13:28 | NUR ---
Dr. Dhillon notified that the pt is extrememly anxious about getting home. Serum potassium level came back 3.2.
[2024-02-23] MEDS ORDERED: POTCHL20ER PO (13:45)
--- NOTE | 2024-02-23 14:24 | NUR ---
2051 The pt is was insistent that she had to leave [facility].She was very concerned about her who was being visited by [facility] demanding rent be paid. She signed the AMA papers, and stated she understood all of her prescriptions were faxed to [facility]. Reviewed all of the prescriptions with her and explained their use and effects. The pt said that she was motivated to stop using illicit drugs and that she plans on follow up with her PCP Dr. Story. Pt was taken out in wheelchair by the EXECUTIVE ACCOUNT MANAGER to a taxi which she was paying for herself.
== END 2024-02-23 13:40 | disposition left against medical advice (07) | DRG 291 ==
LOC: ER 13:34 → PCU 13:35
PROVIDERS: Family Medicine; Nurse Practitioner Acute Care; Student in an Organized Health Care Education/Training Program; ADMIT Hospitalist
DX: I11.0 Hypertensive heart disease with heart failure (principal); I50.21 Acute systolic (congestive) heart failure; G89.29 Other chronic pain; M54.9 Dorsalgia, unspecified; I48.91 Unspecified atrial fibrillation; F11.10 Opioid abuse, uncomplicated; F17.210 Nicotine dependence, cigarettes, uncomplicated; E11.9 Type 2 diabetes mellitus without complications; F90.9 Attention-deficit hyperactivity disorder, unspecified type; F15.10 Other stimulant abuse, uncomplicated; Z71.51 Drug abuse counseling and surveillance of drug abuser; Z79.4 Long term (current) use of insulin
CPT/HCPCS: 0241U; 36415; 71046; 80048; 80053; 82947; 83036; 83735; 83880; 84132; 84443; 84484; 85025; 93005; 93010; 93306; 96365; 96366; 96368; 96375; 96376; 99285-25; A9270; G0378; J1815; J1940; J3475; J3480; J7030; J7050

== ENCOUNTER 2025-09-23 11:19 | Emergency (ER) | payer OTHER ==
[~2025-09-23] VITALS: Ht 154.9 cm; Wt 90.7 kg
[~2025-09-23 11:19] MED LIST changes: +Acetaminophen650 M1 PO; +METO50 PO; +NARCAN4 M1; +POTCHL20ER PO; +SOAANZ20 M1 PO; +XARELTO20 MG PO
[2025-09-23] MEDS ORDERED: METH10 PO (11:32)
[2025-09-23 11:35] VITALS: BP 139/83
== END 2025-09-23 11:55 | disposition home or self-care (01) ==
LOC: ER 11:19
DX: S60.052A Contusion of left little finger without damage to nail, initial encounter (principal); W19.XXXA Unspecified fall, initial encounter; Y92.524 Gas station as the place of occurrence of the external cause; Z76.0 Encounter for issue of repeat prescription
CPT/HCPCS: 99281; A9270